=== PATIENT | female | born 1985 | race Caucasian/White ===

== ENCOUNTER 2016-12-26 21:36 | Observation (INO) | payer BC, OTHER ==
[2016-12-26] MEDS ORDERED: Morphine INJ* 4 MG/ML 1 ML CARPUJECT IV ONE (23:12)
[2016-12-26] MEDS ORDERED: NS 0.9% 1000 ML* 1,000 ML IV ONE (23:12)
[2016-12-26] MEDS ORDERED: Ondansetron INJ* 2 MG/ML VIAL IV ONE (23:12)
[2016-12-27 00:44] LABS: ALT 25 U/L (7-52); AST 16 U/L (13-39); Alkaline Phosphatase 66 U/L (34-104); Anion Gap 11 mmol/L (2-11); BUN/Creatinine Ratio 17.9 (8-20); Blood Urea Nitrogen 12 mg/dL (6-24); CO2 Carbon Dioxide 25 mmol/L (22-32); Calcium 9.9 mg/dL (8.6-10.3); Chloride 104 mmol/L (101-111); EGFR African American 131.2 (>60); Glucose 109 mg/dL (70-100); Lipase 41 U/L (11.0-82.0); Potassium 3.7 mmol/L (3.5-5.0); Sodium 140 mmol/L (133-145)
[2016-12-27] MEDS ORDERED: Ketorolac INJ* 30 MG/ML 1 ML VIAL IV PUSH ONE (00:44)
[2016-12-27 00:47] LABS: Urine Bilirubin Negative (Negative); Urine Glucose Negative (Negative); Urine Nitrite Negative (Negative)
[2016-12-27 00:48] LABS: Hematocrit 41 % (35-47); Hemoglobin 13.2 g/dl (12.0-16.0); Mean Corpuscular HGB Conc 33 g/dl (31-36); Mean Corpuscular Hemoglobin 27 pg (27-31); Mean Corpuscular Volume 81 fL (80-97); Mean Platelet Volume 8 um3 (7.4-10.4); Red Blood Count 4.97 10^6/ul (4.0-5.4); Red Cell Distribution Width 15 % (10.5-15); White Blood Count 17.3 10^3/ul (3.5-10.8)
--- NOTE | 2016-12-27 00:53 | ED ---
Abdominal Pain/Female - HPI Summary HPI Summary: 30F presents with RUQ pain today. She states the pain is located all over but is greatest in her RUQ. She states that her pain radiates to her back. She admits to nausea but denies any vomiting or diarrhea. She states she has two similar episodes of this pain over the past month. She is currently on her period. She denies any dysuria. She states the pain did not occur after a meal and her last meal was at 7pm. She took a gasx and a peptobismol without relief. She denies any fever. - History of Current Complaint Hx Last Menstrual Period: Just stopped last night. Pain Intensity: 8 <Tana Clay - Last Filed: 12/27/16 02:43> <Wyatt Becerril - Last Filed: 12/27/16 04:35> - History of Current Complaint Chief Complaint: EDAbdPain Stated Complaint: ABD PAIN Time Seen by Provider: 12/26/16 22:58 Allergies/Adverse Reactions: Allergies Allergy/AdvReac Type Severity Reaction Status Date / Time Amoxicillin Allergy Hives Verified 12/26/16 21:55 Penicillins Allergy Hives Verified 12/26/16 21:55 Sulfa Antibiotics Allergy Hives Verified 12/26/16 21:55 bee stings Allergy Swelling Uncoded 12/26/16 21:55 Of Face,Lips,& Throat PMH/Surg Hx/FS Hx/Imm Hx Endocrine/Hematology History: Denies: Hx Diabetes, Hx Thyroid Disease Cardiovascular History: Denies: Hx Congestive Heart Failure, Hx Deep Vein Thrombosis, Hx Hypertension , Hx Myocardial Infarction, Hx Pacemaker/ICD Respiratory History: Denies: Hx Asthma, Hx Chronic Obstructive Pulmonary Disease (COPD), Hx Lung Cancer, Hx Pneumonia, Hx Pulmonary Embolism GI History: Denies: Hx Gall Bladder Disease, Hx Gastrointestinal Bleed, Hx Ulcer, Hx Urosepsis History: Denies: Hx Kidney Stones, Hx Renal Disease Neurological History: Reports: Hx Migraine Denies: Hx Dementia, Hx Seizures, Hx Transient Ischemic Attacks (TIA) Psychiatric History: Reports: Hx Anxiety Denies: Hx Depression, Hx Schizophrenia, Hx Bipolar Disorder - Surgical History Surgery Procedure, Year, and Place: DENTAL EXTRACTIONS Infectious Disease History: No Infectious Disease History: Denies: Hx Clostridium Difficile, Hx Hepatitis, Hx Human Immunodeficiency Virus (HIV), Hx of Known/Suspected MRSA, Hx Shingles, Hx Tuberculosis, Hx Known/ Suspected VRE, Hx Known/Suspected VRSA, History Other Infectious Disease, Traveled Outside the [place] in Last 30 Days - Family History Known Family History: Negative: Cardiac Disease, Hypertension - Social History Alcohol Use: Occasionally Substance Use Type: Reports: None Smoking Status (MU): Current Every Day Smoker Type: Cigarettes Amount Used/How Often: 1/2 PPD <ObedTana - Last Filed: 12/27/16 02:43> Review of Systems Negative: Fever Negative: Chest Pain Negative: Shortness Of Breath Positive: Abdominal Pain - RUQ, Nausea. Negative: Vomiting, Diarrhea All Other Systems Reviewed And Are Negative: Yes <ObedTana - Last Filed: 12/27/16 02:43> Physical Exam Triage Information Reviewed: Yes Vital Signs On Initial Exam: Initial Vitals Temp Pulse Resp BP Pulse Ox 96.7 F 74 18 0/0 100 12/26/16 21:47 12/26/16 21:47 12/26/16 21:47 12/26/16 21:47 12/26/16 21:47 Vital Signs Reviewed: Yes Appearance: Positive: Well-Appearing Skin: Positive: Warm, Dry Head/Face: Positive: Normal Head/Face Inspection Eyes: Positive: Normal, Conjunctiva Clear ENT: Positive: Normal ENT inspection, Pharynx normal, TMs normal Respiratory/Lung Sounds: Positive: Clear to Auscultation, Breath Sounds Present Cardiovascular: Positive: Normal, RRR Abdomen Description: Positive: Soft, Other: - moderate tenderness in RUQ, mild tenderness diffusely over entire abdomen, no rebound tenderness, neg terry Bowel Sounds: Positive: Present - [place] Coma Scale Coma Scale Total: 15 <FrancesmimiTana - Last Filed: 12/27/16 02:43> Vital Signs On Initial Exam: Initial Vitals Temp Pulse Resp BP Pulse Ox 96.7 F 74 18 0/0 100 12/26/16 21:47 12/26/16 21:47 12/26/16 21:47 12/26/16 21:47 12/26/16 21:47 <Wyatt Becerril - Last Filed: 12/27/16 04:35> Diagnostics - Vital Signs Vital Signs Temp Pulse Resp BP Pulse Ox 12/27/16 00:35 62 133/84 100 12/27/16 00:31 16 12/27/16 00:06 64 99 12/27/16 00:03 150/93 12/26/16 21:47 96.7 F 74 18 0/0 100 - Laboratory Lab Results: Lab Results 12/27/16 12/27/16 Range/Units 00:15 00:30 Sodium 140 (133-145) mmol/L Potassium 3.7 (3.5-5.0) mmol/L Chloride 104 (101-111) mmol/L Carbon Dioxide 25 (22-32) mmol/L Anion Gap 11 (2-11) mmol/L BUN 12 (6-24) mg/dL Creatinine 0.67 (0.51-0.95) mg/dL Est GFR ( Amer) 131.2 (>60) Est GFR (Non-Af Amer) 102.0 (>60) BUN/Creatinine Ratio 17.9 (8-20) Glucose 109 H (70-100) mg/dL Calcium 9.9 (8.6-10.3) mg/dL Total Bilirubin 0.30 (0.2-1.0) mg/dL AST 16 (13-39) U/L ALT 25 (7-52) U/L Alkaline Phosphatase 66 (34-104) U/L C-React Prot High Sens 4.15 mg/L Total Protein 7.0 (6.4-8.9) g/dL Albumin 4.0 (3.2-5.2) g/dL Globulin 3.0 (2-4) g/dL Albumin/Globulin Ratio 1.3 (1-3) Lipase 41 (11.0-82.0) U/L Urine Color Yellow Urine Appearance Clear Urine pH 5.0 (5-9) Ur Specific [place] 1.026 (1.010-1.030) Urine Protein Negative (Negative) Urine Ketones Negative (Negative) Urine Blood Negative (Negative) Urine Nitrate Negative (Negative) Urine Bilirubin Negative (Negative) Urine Urobilinogen Negative (Negative) Ur Leukocyte Esterase Negative (Negative) Urine Glucose Negative (Negative) Urine Ascorbic Acid * H (Negative) Result Diagrams: 12/27/16 00:15 12/27/16 00:15 Lab Statement: Any lab studies that have been ordered have been reviewed, and results considered in the medical decision making process. - Ultrasound No standard instances Ultrasound Interpretation: Positive (See Comments) - enlarged fatty liver mild. nonmobile stones in gallbladder neck, possibly impacted, without definite secondary signs for cholecystitis. CBD not identified Ultrasound Interpretation Completed By: Radiologist <Tana Clay - Last Filed: 12/27/16 02:43> - Vital Signs Vital Signs Temp Pulse Resp BP Pulse Ox 12/27/16 04:15 98.1 F 12/27/16 00:35 62 133/84 100 12/27/16 00:31 16 12/27/16 00:06 64 99 12/27/16 00:03 150/93 12/26/16 21:47 96.7 F 74 18 0/0 100 - Laboratory Lab Results: Lab Results 12/27/16 12/27/16 12/27/16 Range/Units 00:15 00:15 00:30 WBC 17.3 H (3.5-10.8) 10^3/ul RBC 4.97 (4.0-5.4) 10^6/ul Hgb 13.2 (12.0-16.0) g/dl Hct 41 (35-47) % MCV 81 (80-97) fL MCH 27 (27-31) pg MCHC 33 (31-36) g/dl RDW 15 (10.5-15) % Plt Count 272 (150-450) 10^3/ul MPV 8 (7.4-10.4) um3 Neut % (Auto) 50.7 (38-83) % Lymph % (Auto) 36.5 (25-47) % Barron % (Auto) 6.5 (1-9) % Eos % (Auto) 5.2 (0-6) % Baso % (Auto) 1.1 (0-2) % Absolute Neuts (auto) 8.8 H (1.5-7.7) 10^3/ul Absolute Lymphs (auto) 6.3 H (1.0-4.8) 10^3/ul Absolute Monos (auto) 1.1 H (0-0.8) 10^3/ul Absolute Eos (auto) 0.9 H (0-0.6) 10^3/ul Absolute Basos (auto) 0.2 (0-0.2) 10^3/ul Absolute Nucleated RBC 0.02 10^3/ul Nucleated RBC % 0.1 Sodium 140 (133-145) mmol/L Potassium 3.7 (3.5-5.0) mmol/L Chloride 104 (101-111) mmol/L Carbon Dioxide 25 (22-32) mmol/L Anion Gap 11 (2-11) mmol/L BUN 12 (6-24) mg/dL Creatinine 0.67 (0.51-0.95) mg/dL Est GFR ( Amer) 131.2 (>60) Est GFR (Non-Af Amer) 102.0 (>60) BUN/Creatinine Ratio 17.9 (8-20) Glucose 109 H (70-100) mg/dL Calcium 9.9 (8.6-10.3) mg/dL Total Bilirubin 0.30 (0.2-1.0) mg/dL AST 16 (13-39) U/L ALT 25 (7-52) U/L Alkaline Phosphatase 66 (34-104) U/L C-React Prot High Sens 4.15 mg/L Total Protein 7.0 (6.4-8.9) g/dL Albumin 4.0 (3.2-5.2) g/dL Globulin 3.0 (2-4) g/dL Albumin/Globulin Ratio 1.3 (1-3) Lipase 41 (11.0-82.0) U/L Beta HCG, Quant < 0.60 mIU/mL Urine Color Yellow Urine Appearance Clear Urine pH 5.0 (5-9) Ur Specific [place] 1.026 (1.010-1.030) Urine Protein Negative (Negative) Urine Ketones Negative (Negative) Urine Blood Negative (Negative) Urine Nitrate Negative (Negative) Urine Bilirubin Negative (Negative) Urine Urobilinogen Negative (Negative) Ur Leukocyte Esterase Negative (Negative) Urine Glucose Negative (Negative) Urine Ascorbic Acid * H (Negative) Result Diagrams: 12/27/16 00:15 12/27/16 00:15 Lab Statement: Any lab studies that have been ordered have been reviewed, and results considered in the medical decision making process. <Wyatt Becerril - Last Filed: 12/27/16 04:35> Abdominal Pain Fem Course/Dx - Course Course Of Treatment: 30F presents with diffuse abdominal pain greatest in RUQ today. says has had two other times this month with similiar symptoms but never this severe. admits to nausea. denies any fevers. on exam diffusely tender with tenderness greatest in RUQ. labs WBC of 17.3 but normal LFTs. u/s shows nonmobile stones without definite secondary signs for cholecysitis. discussed with dr courtney and said that should get CT to make sure nothing else going on, thinks like gastroenteritis, signed out to dr becerril pending CT - Diagnoses Differential Diagnosis: Positive: Gall Bladder Disease, Pancreatitis, Urinary Tract Infection <Tana Clay - Last Filed: 12/27/16 02:43> - Course Course Of Treatment: CT SHOWS ACUTE CHOLECYSTITIS. DISCUSSED WITH PATIENT/ FAMILY AND DR HI, SURGERY. ADMIT SURGERY STABLE. <Wyatt Becerril - Last Filed: 12/27/16 04:35> - Diagnoses Provider Diagnoses: Abdominal pain, Cholecystitis Discharge - Discharge Plan Discharge Disposition Comment: signed out to dr becerril pending to CT <Tana Clay - Last Filed: 12/27/16 02:43> - Discharge Plan Discharge Disposition Comment: signed out to dr becerril pending to CT <Wyatt Becerril - Last Filed: 12/27/16 04:35> - Discharge Plan Condition: Stable Disposition: ADMITTED TO [facility] Referrals: Non Staff,Doctor [Primary Care Provider] - Isauro Hi MD [Medical Doctor] -
[2016-12-27] MEDS ORDERED: Morphine INJ* 4 MG/ML 1 ML CARPUJECT IV ONE (01:28)
[2016-12-27] MEDS ORDERED: Iohexol 300* (CONTRAST) 10 ML SDV IV ONE (01:53)
[2016-12-27] MEDS: Nicotine Inhaler* 10 MG AMP INH PRN ×3 (05:20→11:34)
[2016-12-27] MEDS ORDERED: Nicotine Inhaler* 10 MG AMP ONE (05:20)
[2016-12-27] MEDS ORDERED: Mouth Piece, Nicotine* 1 EACH CARTRIDGE ONE (05:22)
[2016-12-27] MEDS: Mouth Piece, Nicotine* 1 EACH CARTRIDGE INH ONE ×2 (05:22→06:24)
[2016-12-27] MEDS ORDERED: Metoclopramide IV* 5 MG/ML 2 ML VIAL IV PRN (07:22)
[2016-12-27] MEDS ORDERED: Morphine INJ* 2 MG/ML 1 ML CARPUJECT IV PRN (07:23)
[2016-12-27] MEDS ORDERED: Morphine INJ* 4 MG/ML 1 ML CARPUJECT IV PRN (07:24)
[2016-12-27] MEDS ORDERED: Ciprofloxacin 400MG IVPREMIX(* 400 MG/200 ML BAG IVPB SCH (07:30)
[2016-12-27] MEDS ORDERED: metroNIDAZOLE IV 500 MG/100ML* 500 MG/100 ML BAG IVPB SCH (08:00)
--- NOTE | 2016-12-27 10:08 | RAD ---
Indication: RIGHT upper quadrant abdominal pain. Comparison: [address] of the same date. Technique: RIGHT upper quadrant ultrasound. Report: 19 cm cephalocaudal liver is mildly echogenic consistent with fatty infiltration. No focal hepatic lesions or intrahepatic biliary dilatation. Adequately distended gallbladder is remarkable for wall thickening measuring up to 5 mm. 1.6 cm nonmobile stone at the neck of the gallbladder. Small volume of pericholecystic fluid evident based on correlation with CT. Negative for sonographic Herrmann's sign. The common bile duct could not be visualized on ultrasound with large body habitus and fatty liver limiting acoustic window. The December 27, 2016 CT is negative for extrahepatic biliary dilatation. The pancreatic tail is largely obscured due to bowel gas. The visualized pancreas is unremarkable. Negative for ascites. Unremarkable 10.6 cm RIGHT kidney. IMPRESSION: 1. Mildly enlarged liver with fatty infiltration. 2. Nonmobile 1.6 cm stone at the neck of the gallbladder, mild gallbladder wall thickening, and small volume of pericholecystic fluid. Early acute cholecystitis should be considered.
--- NOTE | 2016-12-27 10:23 | RAD ---
INDICATION: RIGHT side abdominal/epigastric pain. Recently completed antibiotic for urinary tract infection. COMPARISON: December 26, 2016 RIGHT upper quadrant ultrasound. TECHNIQUE: Multidetector CT images were obtained from the lung bases to the ischial tuberosities with 112 mL Omnipaque 300 IV and oral contrast. Multiplanar reformation. REPORT: 19 cm cephalocaudal liver is decreased in density consistent with fatty infiltration. Focal sparing at the gallbladder fossa. Negative for intra or extrahepatic biliary dilatation. Moderately distended gallbladder is remarkable for mild diffuse wall thickening, mural enhancement, and small volume of pericholecystic fluid. Poorly calcified gallstones visualized with one at the level of the gallbladder neck. Unremarkable pancreas. Negative for peripancreatic inflammatory change. Unremarkable spleen. Negative for CT abnormality of the upper GI, small bowel, or diminutive appendix. Unremarkable colon. Negative for ascites, free air, hernias. Normal adrenal glands. Unremarkable kidneys with symmetric nephrograms and pyelograms. Unremarkable ureters and partially distended urinary bladder as well as the anteverted uterus and adnexal regions. Tampon in place in the vagina. Negative for lymphadenopathy. Unremarkable dominant retroperitoneal vasculature. Physiologic distention of the IVC. Negative for suspicious osseous lesions. IMPRESSION: 1. The constellation of findings interpreted in correlation with the ultrasound of one day prior is highly suggestive of early acute calculus cholecystitis. 2. Mild hepatomegaly and hepatic steatosis.
[2016-12-27] MEDS ORDERED: Acetaminophen TAB* 325 MG PO PRN (10:47)
[2016-12-27 11:28] VITALS: BP 146/95
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
== END 2016-12-27 12:15 | disposition home or self-care (01) ==
LOC: ED 21:36 → INTOOBSV 12-27 04:30 → SSU 12-27 04:30
PROVIDERS: ADMIT Surgery; ATTEND Surgery
DX: K80.00 Calculus of gallbladder with acute cholecystitis without obstruction (principal); F17.210 Nicotine dependence, cigarettes, uncomplicated; Z88.0 Allergy status to penicillin; Z88.2 Allergy status to sulfonamides
CPT/HCPCS: 36415; 74177; 76705; 80053; 81003; 83690; 84702; 85025; 86141; 96374; 96375; 99284; A9270-GY; G0378; J0744; J1885; J2270; J2405; J3490; Q9967

== ENCOUNTER 2017-01-17 12:07 | Observation (INO) | payer BC ==
[2017-01-17] MEDS ORDERED: NS 0.9% 1000 ML* 1,000 ML IV ONE (13:22)
[2017-01-17] MEDS ORDERED: Ondansetron INJ* 2 MG/ML VIAL IV ONE (13:22)
[2017-01-17] MEDS ORDERED: Morphine INJ* 4 MG/ML 1 ML SYRINGE IV ONE (13:22)
--- NOTE | 2017-01-17 14:13 | RAD ---
INDICATION: Right upper quadrant pain COMPARISON: Gallbladder sonogram December 26, 2016 TECHNIQUE: Longitudinal and transverse scans of the right upper quadrant were obtained. Doppler interrogation of the hepatic and portal venous system was performed. FINDINGS: Liver: There is mild hepatic steatosis. There are no masses . The liver is normal in size. The liver measures 17.4 cm in cephalocaudal dimension. Vessels: There is normal hepatic and portal venous flow. Bile ducts: There is no evidence of intrahepatic or extrahepatic ductal dilatation. The common duct measures 0.5 cm. Gallbladder: There is a gallstone in neck of the gallbladder. There is mild thickening of the gallbladder wall (0.4 cm). The patient is tender over the gallbladder. No pericholecystic fluid is seen. Pancreas: The visualized pancreas appears normal Right kidney: The right kidney is normal in size and echogenicity. There are no masses or calculi. There is no evidence of hydronephrosis. The right kidney measures 10.5 x 5.0 x 4.7 cm. IVC and aorta: The aorta and superior vena cava appear normal. Fluid: There is no ascites. Other: None. IMPRESSION: CHOLELITHIASIS WITH MILD THICKENING OF THE GALLBLADDER WALL AND GALLBLADDER TENDERNESS UPON SCANNING
[2017-01-17] MEDS ORDERED: Nicotine Inhaler* 10 MG AMP INH ONE (14:28)
[2017-01-17 14:30] LABS: Hematocrit 39 % (35-47); Hemoglobin 13.1 g/dl (12.0-16.0); Mean Corpuscular HGB Conc 33 g/dl (31-36); Mean Corpuscular Hemoglobin 27 pg (27-31); Mean Corpuscular Volume 81 fL (80-97); Mean Platelet Volume 8 um3 (7.4-10.4); Red Blood Count 4.84 10^6/ul (4.0-5.4); Red Cell Distribution Width 15 % (10.5-15); White Blood Count 16.4 10^3/ul (3.5-10.8)
[2017-01-17 14:32] LABS: Comments Flag Yes
[2017-01-17] MEDS ORDERED: Mouth Piece, Nicotine* 1 EACH CARTRIDGE INH PRN ×2 (14:38→17:22)
[2017-01-17 14:46] LABS: ALT 15 U/L (7-52); AST 13 U/L (13-39); Alkaline Phosphatase 60 U/L (34-104); Anion Gap 7 mmol/L (2-11); BUN/Creatinine Ratio 7.1 (8-20); Blood Urea Nitrogen 4 mg/dL (6-24); C Reactive Protein 5.08 mg/L (< 5.00); CO2 Carbon Dioxide 24 mmol/L (22-32); Calcium 8.8 mg/dL (8.6-10.3); Chloride 107 mmol/L (101-111); EGFR African American 160.3 (>60); EGFR Non-African American 124.7 (>60); Globulin 2.8 g/dL (2-4); Glucose 110 mg/dL (70-100); Lipase 35 U/L (11.0-82.0); Potassium 3.6 mmol/L (3.5-5.0); Sodium 138 mmol/L (133-145); Total Protein 6.8 g/dL (6.4-8.9)
--- NOTE | 2017-01-17 14:58 | ED ---
Bianca, DoctorElyssa, scribed for Francisca Myrick MD on 01/17/17 at 1315 . GI/ HPI - HPI Summary HPI Summary: 31 year old female arrived to [facility] c/o right abd pain radiating to right back beginning at 06:00 today. She reports that her pain was a 3/10 at onset, now rated as a 10/10. She denies any N/V/D or dysuria; reports that her pain is alleviated when taking pressure off the right side. She was dx with gallstones and loose stool on 12/27/2016 in [facility]; saw Dr. Hi but decided to wait before having her gallbladder removed. She was taking Abx; her dose finished yesterday. She lives alone, is employed full-time, and is a regular cigarette smoker. She has no PMHx of diabetes, HLD, HTN, of FHx of gallbladder problems. /A3. - History of Current Complaint Chief Complaint: EDAbdPain Time Seen by Provider: 01/17/17 12:26 Stated Complaint: RT FLANK PAIN Hx Obtained From: Patient Onset/Duration: Started Hours Ago - onset at 06:00 today, Still Present Timing: Lasting Hours Severity: Moderate Current Severity: Moderate Pain Intensity: 10 - on 0-10 numerical scale Location of Pain: Radiates to: - right back, RUQ, RLQ Associated Signs and Symptoms: Positive: Back Pain - right back pain, Abdominal Pain - right abdomen. Negative: Nausea, Vomiting, Diarrhea, Fever Additional Signs & Symptoms: Positive: Other: - /A3 Alleviating Factor(s): Position - lying on left side alleviates pain - Allergy/Home Medications Allergies/Adverse Reactions: Allergies Allergy/AdvReac Type Severity Reaction Status Date / Time Amoxicillin Allergy Hives Verified 01/17/17 12:14 Penicillins Allergy Hives Verified 01/17/17 12:14 Sulfa Antibiotics Allergy Hives Verified 01/17/17 12:14 bee stings Allergy Swelling Uncoded 12/26/16 21:55 Of Face,Lips,& Throat PMH/Surg Hx/FS Hx/Imm Hx Endocrine/Hematology History: Denies: Hx Diabetes, Hx Thyroid Disease Cardiovascular History: Denies: Hx Congestive Heart Failure, Hx Deep Vein Thrombosis, Hx Hypertension , Hx Myocardial Infarction, Hx Pacemaker/ICD Respiratory History: Denies: Hx Asthma, Hx Chronic Obstructive Pulmonary Disease (COPD), Hx Lung Cancer, Hx Pneumonia, Hx Pulmonary Embolism GI History: Denies: Hx Gall Bladder Disease, Hx Gastrointestinal Bleed, Hx Ulcer, Hx Urosepsis History: Denies: Hx Kidney Stones, Hx Renal Disease Sensory History: Denies: Hx Contacts or Glasses, Hx Hearing Aid Opthamlomology History: Denies: Hx Contacts or Glasses Neurological History: Reports: Hx Migraine Denies: Hx Dementia, Hx Seizures, Hx Transient Ischemic Attacks (TIA) Psychiatric History: Reports: Hx Anxiety Denies: Hx Depression, Hx Schizophrenia, Hx Bipolar Disorder - Surgical History Surgery Procedure, Year, and Place: DENTAL EXTRACTIONS Hx Anesthesia Reactions: No Infectious Disease History: No Infectious Disease History: Denies: Hx Clostridium Difficile, Hx Hepatitis, Hx Human Immunodeficiency Virus (HIV), Hx of Known/Suspected MRSA, Hx Shingles, Hx Tuberculosis, Hx Known/ Suspected VRE, Hx Known/Suspected VRSA, History Other Infectious Disease, Traveled Outside the [place] in Last 30 Days - Family History Known Family History: Negative: Cardiac Disease, Hypertension - Social History Occupation: Employed Full-time Lives: Alone Alcohol Use: Rare Substance Use Type: Reports: None Smoking Status (MU): Current Every Day Smoker Type: Cigarettes Amount Used/How Often: 1/2 PPD Review of Systems Negative: Fever Positive: Abdominal Pain. Negative: Vomiting, Diarrhea, Nausea Negative: dysuria Positive: Other - right back pain All Other Systems Reviewed And Are Negative: Yes Physical Exam Triage Information Reviewed: Yes Vital Signs On Initial Exam: Initial Vitals Temp Pulse Resp BP Pulse Ox 97.4 F 105 19 156/98 99 01/17/17 12:08 01/17/17 12:08 01/17/17 12:08 01/17/17 12:08 01/17/17 12:08 Vital Signs Reviewed: Yes Appearance: Positive: Well-Appearing, Pain Distress Skin: Positive: Warm, Skin Color Reflects Adequate Perfusion, Dry Eyes: Positive: EOMI, JAMARI ENT: Positive: Pharynx normal, TMs normal Neck: Positive: Supple, Nontender Respiratory/Lung Sounds: Positive: Clear to Auscultation, Breath Sounds Present. Negative: Rales, Rhonchi, Wheezes Cardiovascular: Positive: RRR. Negative: Murmur, Rub Abdomen Description: Positive: Soft. Negative: Nontender - right abdomen tender , Distended, Guarding Musculoskeletal: Positive: Normal, Strength/ROM Intact Neurological: Positive: Sensory/Motor Intact, Alert, Oriented to Person Place, Time, CN Intact II-III Psychiatric: Positive: Normal, Affect/Mood Appropriate Diagnostics - Vital Signs Vital Signs Temp Pulse Resp BP Pulse Ox 01/17/17 12:11 97.4 F 104 19 156/98 99 01/17/17 12:08 97.4 F 105 19 156/98 99 - Laboratory Lab Results: Lab Results 01/17/17 01/17/17 01/17/17 Range/Units 14:20 14:20 14:20 WBC 16.4 H (3.5-10.8) 10^3/ul RBC 4.84 (4.0-5.4) 10^6/ul Hgb 13.1 (12.0-16.0) g/dl Hct 39 (35-47) % MCV 81 (80-97) fL MCH 27 (27-31) pg MCHC 33 (31-36) g/dl RDW 15 (10.5-15) % Plt Count 288 (150-450) 10^3/ul MPV 8 (7.4-10.4) um3 Neut % (Auto) 54.7 (38-83) % Lymph % (Auto) 31.8 (25-47) % Dundy % (Auto) 8.3 (1-9) % Eos % (Auto) 4.1 (0-6) % Baso % (Auto) 1.1 (0-2) % Absolute Neuts (auto) 9.0 H (1.5-7.7) 10^3/ul Absolute Lymphs (auto) 5.2 H (1.0-4.8) 10^3/ul Absolute Monos (auto) 1.4 H (0-0.8) 10^3/ul Absolute Eos (auto) 0.7 H (0-0.6) 10^3/ul Absolute Basos (auto) 0.2 (0-0.2) 10^3/ul Absolute Nucleated RBC 0.01 10^3/ul Nucleated RBC % 0 Sodium 138 (133-145) mmol/L Potassium 3.6 (3.5-5.0) mmol/L Chloride 107 (101-111) mmol/L Carbon Dioxide 24 (22-32) mmol/L Anion Gap 7 (2-11) mmol/L BUN 4 L (6-24) mg/dL Creatinine 0.56 (0.51-0.95) mg/dL Est GFR ( Amer) 160.3 (>60) Est GFR (Non-Af Amer) 124.7 (>60) BUN/Creatinine Ratio 7.1 L (8-20) Glucose 110 H (70-100) mg/dL Lactic Acid 1.0 (0.5-2.0) mmol/L Calcium 8.8 (8.6-10.3) mg/dL Total Bilirubin 0.20 (0.2-1.0) mg/dL AST 13 (13-39) U/L ALT 15 (7-52) U/L Alkaline Phosphatase 60 (34-104) U/L C-Reactive Protein 5.08 H (< 5.00) mg/L Total Protein 6.8 (6.4-8.9) g/dL Albumin 4.0 (3.2-5.2) g/dL Globulin 2.8 (2-4) g/dL Albumin/Globulin Ratio 1.4 (1-3) Lipase 35 (11.0-82.0) U/L Beta HCG, Quant < 0.60 mIU/mL Result Diagrams: 01/17/17 14:20 01/17/17 14:20 Lab Statement: Any lab studies that have been ordered have been reviewed, and results considered in the medical decision making process. - Ultrasound No standard instances Ultrasound Interpretation Completed By: Radiologist - Gallbladder US IMPRESSION: CHOLELITHIASIS WITH MILD THICKENING OF THE GALLBLADDER WALL AND GALLBLADDER TENDERNESS UPON SCANNING GIGU Course/Dx - Course Course Of Treatment: 31 yo seen by surgery 3 weeks ago with choleycystitis back with returned pain today pain a 10/ pt accepted by Dr. Banks - Diagnoses Provider Diagnoses: Acute cholecystitis - Physician Notifications Discussed Care Of Patient With: 14:40 - Discussed care of pt with Dr. Banks ( surgeon). Agrees to admit pt. Discharge - Discharge Plan Condition: Stable Disposition: ADMITTED TO [facility] Referrals: Non Staff,Doctor [Primary Care Provider] - The documentation as recorded by the Doctor sommer Tahera accurately reflects the service I personally performed and the decisions made by , Francisca Myrick MD.
[2017-01-17] MEDS ORDERED: Nicotine Inhaler* 10 MG AMP ONE (17:21)
[2017-01-17] MEDS ORDERED: Ondansetron INJ* 2 MG/ML VIAL IV PRN (17:22)
[2017-01-17] MEDS ORDERED: Morphine INJ* 2 MG/ML 1 ML SYRINGE ONE (17:22)
[2017-01-17] MEDS: Nicotine Inhaler* 10 MG AMP INH PRN ×2 (17:27→19:06)
[2017-01-17] MEDS: Morphine INJ* 2 MG/ML 1 ML SYRINGE IV PRN ×2 (17:27→22:41)
[2017-01-17] MEDS: metroNIDAZOLE IV 500 MG/100ML* 500 MG/100 ML BAG IVPB SCH (17:53)
--- NOTE | 2017-01-17 19:13 | HP ---
H&P (Free Text) History and Physical: Surgery H & P Asked by Dr. Myrick to evaluate a pt. with recurrent abdominal pain and known gallstones. Ms. Poe is a 31 y.o. female who was admitted ~3 wks ago with cholecystitis who at that time declined surgery. She was doing well on abx, but had her last dose yesterday and then today ate a lg. chocolate chip cookie. This was followed by abd. pain that worsened through the day till she recognized that she needed to come to the ER. Here she was found to have signs of cholecystitis and has been admitted. PMHx: none Meds: none ALL: PCNs and Sulfa drugs SH: 1/2 ppd tob (advised to quit); occ EtOH, neg. IVDA FH: cancer, Poly Gehrig's disease PE: general: WDWN obese female in NAD Vital Signs 01/17/17 01/17/17 01/17/17 12:08 12:11 14:34 Temperature 97.4 F 97.4 F Pulse Rate 105 104 Respiratory 19 19 18 Rate Blood Pressure 156/98 156/98 (mmHg) O2 Sat by Pulse 99 99 Oximetry 01/17/17 01/17/17 01/17/17 17:02 17:27 18:03 Temperature 97.3 F Pulse Rate 80 Respiratory 16 16 16 Rate Blood Pressure 122/81 (mmHg) O2 Sat by Pulse 100 Oximetry 01/17/17 18:14 Temperature Pulse Rate Respiratory 16 Rate Blood Pressure (mmHg) O2 Sat by Pulse Oximetry HEENT: anicteric sclerae, moist oral mucosa, neg. cervical adenopathy lungs: clear to ausc. heart: reg. abd: good BS,soft, mildly tender in RUQ, without guarding or rebound ext: neg. cyanosis, edema Laboratory Results - last 24 hr 01/17/17 01/17/17 01/17/17 14:20 14:20 14:20 WBC 16.4 H RBC 4.84 Hgb 13.1 Hct 39 MCV 81 MCH 27 MCHC 33 RDW 15 Plt Count 288 MPV 8 Neut % (Auto) 54.7 Lymph % (Auto) 31.8 [place] % (Auto) 8.3 Eos % (Auto) 4.1 Baso % (Auto) 1.1 Absolute Neuts (auto) 9.0 H Absolute Lymphs (auto) 5.2 H Absolute Monos (auto) 1.4 H Absolute Eos (auto) 0.7 H Absolute Basos (auto) 0.2 Absolute Nucleated RBC 0.01 Nucleated RBC % 0 Sodium 138 Potassium 3.6 Chloride 107 Carbon Dioxide 24 Anion Gap 7 BUN 4 L Creatinine 0.56 Est GFR ( Amer) 160.3 Est GFR (Non-Af Amer) 124.7 BUN/Creatinine Ratio 7.1 L Glucose 110 H Lactic Acid 1.0 Calcium 8.8 Total Bilirubin 0.20 AST 13 ALT 15 Alkaline Phosphatase 60 C-Reactive Protein 5.08 H Total Protein 6.8 Albumin 4.0 Globulin 2.8 Albumin/Globulin Ratio 1.4 Lipase 35 Beta HCG, Quant < 0.60 A/P: Probable recurrent cholecystitis during interval after trial of abx. Admit to obv.; abx, clear liq. diet., pain control. Will discuss with Dr. Hi in AM> Fostaxel
[2017-01-17] MEDS: Ciprofloxacin 400MG IVPREMIX(* 400 MG/200 ML BAG IVPB SCH (19:27)
[2017-01-18] MEDS: metroNIDAZOLE IV 500 MG/100ML* 500 MG/100 ML BAG IVPB SCH ×3 (01:46→17:35)
[2017-01-18 07:04] LABS: Hematocrit 37 % (35-47); Hemoglobin 12.2 g/dl (12.0-16.0); Mean Corpuscular HGB Conc 33 g/dl (31-36); Mean Corpuscular Hemoglobin 27 pg (27-31); Mean Corpuscular Volume 83 fL (80-97); Mean Platelet Volume 8 um3 (7.4-10.4); Red Blood Count 4.52 10^6/ul (4.0-5.4); Red Cell Distribution Width 16 % (10.5-15); White Blood Count 12.3 10^3/ul (3.5-10.8)
[2017-01-18 07:26] LABS: Albumin 3.2 g/dL (3.2-5.2); BUN/Creatinine Ratio 6.5 (8-20); EGFR African American 142.6 (>60); EGFR Non-African American 110.9 (>60); Globulin 2.4 g/dL (2-4); Potassium 3.5 mmol/L (3.5-5.0); Total Bilirubin 0.4 mg/dL (0.2-1.0); Total Protein 5.6 g/dL (6.4-8.9)
[2017-01-18] MEDS: Ciprofloxacin 400MG IVPREMIX(* 400 MG/200 ML BAG IVPB SCH ×2 (08:12→20:19)
--- NOTE | 2017-01-18 09:01 | SURGPN ---
Subjective - Introduction -: Reports feeling better today, but afraid her RUQ pain will return if she eats. Denies N/V, fever or chills. - Medications -: Active Medications Generic Name Dose Route Start Last Admin Trade Name Freq PRN Reason Stop Dose Admin Device 1 each 01/17/17 14:38 Nicotine Mouth Piece* INH .USE WITH NICOTROL PRN CRAVING Ciprofloxacin/Dextrose 400 mg in 200 mls @ 200 mls/hr 01/17/17 20:00 08:12 Cipro 400 Mg Ivpremix(*) IVPB 200 mls/hr Q12H WESTLEY Administration Metronidazole/Sodium Chloride 500 mg in 100 mls @ 100 mls/hr 01/17/17 18:00 01/18/17 01:46 Flagyl 500 Mg Ivpb* IVPB 100 mls/hr Q8H WESTLEY Administration Morphine Sulfate 2 mg 01/17/17 17:21 01/17/17 22:41 Morphine Inj (Syringe)* IV 2 mg Q2H PRN Administration PAIN Nicotine 10 mg 01/17/17 17:22 01/17/17 19:06 Nicotine Inhaler* INH 10 mg Q2H PRN Administration CRAVINGS Ondansetron HCl 4 mg 01/17/17 17:22 Zofran Inj* IV Q6H PRN NAUSEA/VOMITING Objective - Objective -: Awake and alert, sitting on her bed ready for breakfast, in NAD. - Intake and Output -: Intake & Output 01/16/17 01/17/17 01/18/17 01/19/17 06:59 06:59 06:59 06:59 Intake Total 1288 Output Total 600 150 Balance 688 -150 Weight 197 lb 3.2 oz Intake: IV Fluids 388 NS (0.9%) 88 Oral 900 Output: Urine 600 150 Surgical Physical Exam - Comments -: VSS, afebrile Lungs CTA bilat. Abdomen soft, ND. Mild RUQ tenderness, no guarding or rebound. Labs noted, WBCs down to 12,000 Assessment and Plan - Assessment -: Chronic recurrent cholecystitis with cholelithiasis. - Plan Additional Comments: Patient appears to be comfortable at this time, however, she has had this problem for a while and would like to proceed with cholecystectomy during this admission. Will keep her NPO past midnight in anticipation for surgery tomorrow. She understands and wishes to proceed. Discussed with Dr. Hi who agreed to plan.
[2017-01-18 09:27] LABS: Urine Bacteria Absent (Absent); Urine Bilirubin Negative (Negative); Urine Glucose Negative (Negative); Urine Nitrite Negative (Negative)
[2017-01-18] MEDS: Nicotine Inhaler* 10 MG AMP INH PRN ×3 (11:51→23:30)
[2017-01-18] MEDS: Morphine INJ* 2 MG/ML 1 ML SYRINGE IV PRN ×2 (19:12→23:52)
[2017-01-19] MEDS: Nicotine Inhaler* 10 MG AMP INH PRN ×2 (01:15→08:09)
[2017-01-19] MEDS: metroNIDAZOLE IV 500 MG/100ML* 500 MG/100 ML BAG IVPB SCH (01:37)
[2017-01-19] MEDS: Morphine INJ* 2 MG/ML 1 ML SYRINGE IV PRN ×3 (01:42→07:50)
[2017-01-19] MEDS: Ciprofloxacin 400MG IVPREMIX(* 400 MG/200 ML BAG IVPB SCH (07:57)
[2017-01-19] MEDS ORDERED: Dexamethasone IV* 4 MG/ML 1 ML (4 MG) IV SLOW PU ONE ×2 (08:00→09:30)
[2017-01-19] MEDS ORDERED: Famotidine IV* 10 MG/ML 2 ML (20 mg) IV ONE ×2 (08:00→09:30)
[2017-01-19 08:57] LABS: Hematocrit 37 % (35-47); Mean Corpuscular HGB Conc 33 g/dl (31-36); Mean Corpuscular Hemoglobin 27 pg (27-31); Mean Corpuscular Volume 82 fL (80-97); Mean Platelet Volume 8 um3 (7.4-10.4); Red Blood Count 4.48 10^6/ul (4.0-5.4); Red Cell Distribution Width 16 % (10.5-15); White Blood Count 11.2 10^3/ul (3.5-10.8)
[2017-01-19] MEDS ORDERED: fentaNYL* 50 MCG/ML 2 ML VIAL (100 MCG VIAL) ONE (09:06)
[2017-01-19] MEDS ORDERED: KETAMINE HCL* 50 MG/ML 10 ML VIAL ONE (09:06)
[2017-01-19] MEDS ORDERED: Midazolam* 1 MG/ML 2 ML VIAL (2 MG) ONE (09:06)
[2017-01-19] MEDS ORDERED: Propofol* 500 MG/50 ML BTL ONE (09:09)
[2017-01-19 09:11] LABS: BUN/Creatinine Ratio 4.8 (8-20); EGFR Non-African American 108.8 (>60); Potassium 3.4 mmol/L (3.5-5.0)
[2017-01-19] MEDS ORDERED: Lidocaine 1% INJ* 10 MG/ML 30 ML SDV ONE (09:11)
[2017-01-19] MEDS ORDERED: Glycopyrrolate IV* 0.2 MG/ML 1 ML VIAL ONE (09:16)
[2017-01-19] MEDS ORDERED: Ketorolac INJ* 30 MG/ML 1 ML VIAL ONE (09:16)
[2017-01-19] MEDS ORDERED: Rocuronium* 10 MG/ML VIAL ONE (09:16)
[2017-01-19] MEDS ORDERED: Neostigmine Methylsulfate* 2 MG/2 ML SYRINGE ONE (09:16)
[2017-01-19] MEDS ORDERED: Ondansetron INJ* 2 MG/ML VIAL ONE (09:16)
[2017-01-19] MEDS ORDERED: Bupivacaine 0.25% EPI 200,000* 30 ML SDV ONE (09:26)
[2017-01-19] MEDS ORDERED: fentaNYL* 50 MCG/ML 2 ML VIAL (100 MCG VIAL) IV PRN (09:43)
[2017-01-19] MEDS ORDERED: DiMENhydriNATE IV* 50 MG/ML VIAL IV PUSH PRN (09:43)
[2017-01-19] MEDS ORDERED: Bacitracin OINTMENT* 1 TUBE ONE (11:03)
--- NOTE | 2017-01-19 11:05 | SURGPN ---
Brief Operative Note - Surgery Procedures: Pre-OP Diagnoses: acute cholecystitis Post-op Diagnosis: same Procedure: Laparoscopic cholecystectomy Surgeon: Kolton Asst: Ivett Santostheteena: RENALDO Henry EBL: minimal IVF: 700cc Specimen: gallbladder Drains: none
[2017-01-19] MEDS ORDERED: oxyCODONE/Acetamin 5/325 MG* TAB ONE (11:37)
[2017-01-19] MEDS ORDERED: oxyCODONE/Acetamin 5/325 MG* TAB PO PRN (11:38)
[2017-01-19] MEDS ORDERED: DiMENhydriNATE IV* 50 MG/ML VIAL ONE (11:48)
[2017-01-19] MEDS ORDERED: HYDROmorphone* 1 MG/ML 1 ML SYR ONE (11:51)
[2017-01-19] MEDS: HYDROmorphone* 1 MG/ML 1 ML SYR IV PRN ×2 (11:53→12:04)
[2017-01-19 13:23] VITALS: BP 117/77
--- NOTE | 2017-01-20 01:32 | OP ---
DATE OF OPERATION: 01/19/17 - ROOM #341 DATE OF : 81 SURGEON: Isauro Hi MD. SMOKE CONTROL SUPERVISOR: DEISY Chen. ANESTHESIOLOGIST: Dr. Henry. ANESTHESIA: General. PRE-OP DIAGNOSIS: Acute cholecystitis. POST-OP DIAGNOSIS: Acute cholecystitis. OPERATIVE PROCEDURE: Laparoscopic cholecystectomy. ESTIMATED BLOOD LOSS: Minimal. FLUIDS: 700 cc of crystalloid fluid given. SPECIMEN: Gallbladder. DRAINS: None. DESCRIPTION OF PROCEDURE: The patient was identified in the preoperative area, I discussed the case with her. When going over the risks, benefits and alternatives to the laparoscopic cholecystectomy for diagnosis of acute cholecystitis, the patient agreed to proceed. We spoke of the possible complications, which include, but are not limited to bleeding, infection, bile leak, bile duct injury, retained common bile duct stones, need for open procedure and need for additional procedures, the patient was marked and brought to the operating room and placed on the operating table in supine position. Preoperative antibiotics were given. Sequential devices were placed on bilateral lower extremities. General anesthesia was induced. The patient's abdomen was prepped and draped in the standard surgical fashion. A time-out was performed. Folds of the umbilicus were elevated anteriorly and a Veress needle was inserted into the abdominal cavity, which was then allowed to insufflate to a pressure of 15 mmHg. The patient tolerated the insufflation well. An incision was made over he Veress needle and the Veress needle was removed and a 5 mm trocar inserted into the abdomen. A laparoscope was inserted through this and there was no evidence of injury from the trocar insertion or from the Veress needle. Additional trocars were then placed in the supine position, a 12 mm in the subxiphoid area and two 5 mm along the right costal margin. The patient was positioned head up right side up. Gallbladder was identified. The greater omentum and transverse colon were identified at this site, these were taken down with both blunt and sharp dissection to free this from fundus of the gallbladder and once the fundus is identified well enough, we can elevate it anteriorly. The infundibulum was grasped and retracted towards the right lower quadrant. This exposed Calot's triangle along with Calot's node. We dissected the peritoneum off the lateral aspect of the gallbladder and off the medial aspect. The cystic duct was identified as was the common bile duct. The cystic artery was isolated and the cystic duct was isolated. Both were doubly clipped and ligated and the gallbladder was removed from the liver bed in its entirety and placed in an endoscopic retrieval bag. Attention was turned towards cystic artery stump. There was no bleeding or bile leak. Decision was made to place a Endoloop over the cystic duct, because these clips were close together up against the cut edge. A 0 chromic Endoloop was then utilized and placed at the cystic duct, was cut to size and then the review of the abdomen showed no bleeding or no bile leak. Hemostasis was excellent and the gallbladder was removed with its endoscopic retrieval bag through the uppermost port that had been dilated. The abdomen was allowed to collapse. Trocar was removed under direct vision and the umbilical port site was reapproximated with 3-0 chromic suture in a simple fashion and all the additional three incisions were closed with 4-0 Monocryl subcuticular sutures. Steri-strips and sterile dressings were applied. The patient tolerated the procedure well and was transferred to the PACU. [id number]/[facility] #: [id number] [place]
== END 2017-01-19 13:40 | disposition home or self-care (01) ==
LOC: ED 12:07 → SSU 14:50
PROVIDERS: ADMIT Surgery; ATTEND Surgery
PROC: 0FT44ZZ Resection of Gallbladder, Percutaneous Endoscopic Approach (ICD-10-PCS; principal; 2017-01-19 09:45)
DX: K80.12 Calculus of gallbladder with acute and chronic cholecystitis without obstruction (principal)
CPT/HCPCS: 36415; 76705; 80048; 80053; 81003; 81015; 83605; 83690; 84702; 85025; 86140; 87086; 88304; 96361; 96365; 96366; 96375; 96376; 99284; A9270-GY; G0378; J0744; J1100; J1170; J1240; J1885; J2001; J2250; J2270; J2405; J2704; J3010